=== PATIENT | female | born 1995 | race Caucasian/White ===

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

== ENCOUNTER → 2017-01-12 | Outpatient (CLI) | payer OTHER ==
[2017-01-12 11:48] LABS: BASO % 0.4 %; BASO ABS # 0.02 K/uL (0-0.2); COMPLETE YES; EOS % 4.6 %; HEMATOCRIT 39.9 % (37-47); IG% 0.2 %; LYMPH % 43.3 %; LYMPH ABS # 1.99 K/uL (1.2-3.4); MEAN CELL VOLUME 90.3 fL (80-100); MEAN CORPUSCULAR HEMOGLOBIN 28.5 pg (25-34); MEAN CORPUSCULAR HGB CONC 31.6 g/dl (32-36); MEAN PLATELET VOLUME 11.8 fL (7.4-10.4); MONO % 7.4 %; NEUT % 44.1 %; PLATELET COUNT 180 K/uL (130-400); RED BLOOD COUNT 4.42 M/uL (4.2-5.4)
[2017-01-12 14:01] LABS: ALT/SGPT 33 U/L (12-78); BLOOD UREA NITROGEN 9 mg/dl (7-18); BUN/CREATININE RATIO 11.9 (10-20); CALCIUM 9.5 mg/dl (8.5-10.1); CARBON DIOXIDE 29 mmol/L (21-32); CHLORIDE 108 mmol/L (98-107); CREATININE 0.77 mg/dl (0.60-1.20); GLUCOSE 87 mg/dl (70-99); POTASSIUM 4.3 mmol/L (3.5-5.1); SODIUM 141 mmol/L (136-145)
[2017-01-12 14:04] LABS: ALB/GLOB RATIO 1.2 (0.9-2); ALKALINE PHOSPHATASE 82 U/L (45-117); AST/SGOT 23 U/L (15-37)
== END | disposition home or self-care (01) ==
LOC: C.LAB 10:18
PROVIDERS: ATTEND Family Medicine
DX: F10.14 Alcohol abuse with alcohol-induced mood disorder (principal)

== ENCOUNTER 2017-05-17 18:20 | Emergency (ER) | payer OTHER ==
[~2017-05-17] VITALS: Ht 165.1 cm; Wt 46.4 kg
[2017-05-17 18:24] VITALS: TEMP 36.5; Ht 165.1 cm; Wt 46.4 kg
--- NOTE | 2017-05-17 19:14 | DIAGNOSTIC IMAGING REPORT ---
CHEST ONE VIEW PORTABLE HISTORY: 22 years-old Female Evaluate Fever/Sepsis acute fever with sepsis COMPARISON: None available TECHNIQUE: Portable AP view of the chest FINDINGS: Cardiomediastinal and hilar silhouettes are within normal limits. There is no pneumothorax, pleural effusion, focal airspace consolidation or overt pulmonary edema. Probable bone islands of the bilateral humeral heads. Bones appear grossly intact. Mild gaseous distention of the stomach. IMPRESSION: No acute process. The above report was generated using voice recognition software. It may contain grammatical, syntax or spelling errors. Electronically signed by: Chemo Gonzalez M.D. 05/17/2017 7:12 PM Dictated Date/Time: 05/17/2017 7:11 PM
[2017-05-17 19:37] LABS: BASO % 0.6 %; BASO ABS # 0.03 K/uL (0-0.2); EOS % 1.7 %; EOS ABS # 0.09 K/uL (0-0.5); HEMATOCRIT 35.8 % (37-47); IG# 0.02 K/uL (0.00-0.02); LYMPH % 29.1 %; LYMPH ABS # 1.56 K/uL (1.2-3.4); MEAN CELL VOLUME 90.9 fL (80-100); MEAN CORPUSCULAR HEMOGLOBIN 30.5 pg (25-34); MEAN CORPUSCULAR HGB CONC 33.5 g/dl (32-36); MEAN PLATELET VOLUME 10.3 fL (7.4-10.4); MONO % 9.5 %; MONO ABS # 0.51 K/uL (0.11-0.59); NEUT % 58.7 %; NEUT ABS # 3.16 K/uL (1.4-6.5); PLATELET COUNT 205 K/uL (130-400); RED CELL DISTRIBUTION WIDTH CV 14.6 % (11.5-14.5); RED CELL DISTRIBUTION WIDTH SD 47.7 fL (36.4-46.3); WHITE BLOOD COUNT 5.37 K/uL (4.8-10.8)
[2017-05-17] MEDS ORDERED: NALT380I INJ (19:50)
[2017-05-17 19:56] LABS: BLOOD UREA NITROGEN 16 mg/dl (7-18); CARBON DIOXIDE 31 mmol/L (21-32); CREATININE 0.67 mg/dl (0.60-1.20); GLUCOSE 96 mg/dl (70-99); POTASSIUM 3.2 mmol/L (3.5-5.1); SODIUM 138 mmol/L (136-145)
[2017-05-17 20:12] VITALS: BP 111/66; PULSE 77; O2SAT 98
--- NOTE | 2017-05-17 20:24 | EMERGENCY ROOM VISIT NOTE ---
History Report prepared by Lauraibluis: Angela Roman Under the Supervision of: Dr. Kings Grullon D.O. First contact with patient: 18:58 Chief Complaint: PALPITATIONS Stated Complaint: CHEST PAIN, RACY HEART EARLIER Nursing Triage Summary: Patient states she feels like her heart is racing, started one hour ago. Denies chest pain. History of Present Illness The patient is a 22 year old female who presents to the Emergency Room with complaints of persistent palpitations for 1.5 hours. She states that her heart has been racing and it wont stop. She notes that she was sitting when the symptoms began. She states that she has never had this problem in the past. She reports eating and drinking as normal. She states that she exercises a lot. She denies any chest pain. Source of History: patient Onset: 1.5 hours ago Position: chest Quality: other (palpitations) Timing: other (persistent) Associated Symptoms: No chest pain Review of Systems See HPI for pertinent positives & negatives. A total of 10 systems reviewed and were otherwise negative. Past Medical & Surgical Medical Problems: (1) No Known Active Medical Problems (2) Patient unable to provide medical history Family History No pertinent family history Social History Smoking Status: Never Smoker Alcohol Use: heavy Housing Status: lives with family Occupation Status: [employer] student Current/Historical Medications Scheduled Naltrexone (Vivitrol), 190 MG INJ [id number] Allergies Coded Allergies: No Known Allergies (Unverified , 05/17/17) Physical Exam Vital Signs Date Time Temp Pulse Resp B/P (MAP) Pulse Ox O2 Delivery O2 Flow Rate FiO2 05/17/17 20:12 77 18 111/66 98 Room Air 05/17/17 19:37 66 05/17/17 18:26 Room Air 05/17/17 18:24 36.5 95 16 129/76 96 Room Air Physical Exam CONSTITUTIONAL/VITAL SIGNS: Reviewed / noted above. GENERAL: Non-toxic in appearance. INTEGUMENTARY: Warm, dry, and [place]. HEAD: Normocephalic. EYES: without scleral icterus or trauma. ENT/OROPHARYNX: clear and moist. LYMPHADENOPATHY/NECK: Is supple without lymphadenopathy or meningismus. RESPIRATORY: Lungs clear and equal. CARDIOVASCULAR: Regular rate and rhythm. GI/ABDOMEN: Soft and nontender. No organomegaly or pulsatile mass. No rebound or guarding. Normal bowel sounds. EXTREMITIES: Warm and well perfused. BACK: No CVA tenderness. NEUROLOGICAL: Intact without focal deficits. PSYCHIATRIC: normal affect. MUSCULOSKELETAL: Normally developed with good muscle tone. Medical Decision & Procedures ER Provider Diagnostic Interpretation: Radiology results as stated below per my review and radiologist interpretation: CHEST ONE VIEW PORTABLE HISTORY: 22 years-old Female Evaluate Fever/Sepsis acute fever with sepsis COMPARISON: None available TECHNIQUE: Portable AP view of the chest FINDINGS: Cardiomediastinal and hilar silhouettes are within normal limits. There is no pneumothorax, pleural effusion, focal airspace consolidation or overt pulmonary edema. Probable bone islands of the bilateral humeral heads. Bones appear grossly intact. Mild gaseous distention of the stomach. IMPRESSION: No acute process. The above report was generated using voice recognition software. It may contain grammatical, syntax or spelling errors. Electronically signed by: Chemo Gonzalez M.D. 05/17/2017 7:12 PM Dictated Date/Time: 05/17/2017 7:11 PM Laboratory Results 05/17/17 19:18 Red Blood Count 3.94, Mean Corpuscular Volume 90.9, Mean Corpuscular Hemoglobin 30.5, Mean Corpuscular Hemoglobin Concent 33.5, Mean Platelet Volume 10.3, Neutrophils (%) (Auto) 58.7, Lymphocytes (%) (Auto) 29.1, Monocytes (%) (Auto) 9.5, Eosinophils (%) (Auto) 1.7, Basophils (%) (Auto) 0.6, Neutrophils # (Auto) 3.16, Lymphocytes # (Auto) 1.56, Monocytes # (Auto) 0.51, Eosinophils # (Auto) 0.09, Basophils # (Auto) 0.03 05/17/17 19:18 Test 05/17/17 19:18 White Blood Count 5.37 K/uL (4.8-10.8) Red Blood Count 3.94 M/uL (4.2-5.4) Hemoglobin 12.0 g/dL (12.0-16.0) Hematocrit 35.8 % (37-47) Mean Corpuscular Volume 90.9 fL (80-100) Mean Corpuscular Hemoglobin 30.5 pg (25-34) Mean Corpuscular Hemoglobin Concent 33.5 g/dl (32-36) Platelet Count 205 K/uL (130-400) Mean Platelet Volume 10.3 fL (7.4-10.4) Neutrophils (%) (Auto) 58.7 % Lymphocytes (%) (Auto) 29.1 % Monocytes (%) (Auto) 9.5 % Eosinophils (%) (Auto) 1.7 % Basophils (%) (Auto) 0.6 % Neutrophils # (Auto) 3.16 K/uL (1.4-6.5) Lymphocytes # (Auto) 1.56 K/uL (1.2-3.4) Monocytes # (Auto) 0.51 K/uL (0.11-0.59) Eosinophils # (Auto) 0.09 K/uL (0-0.5) Basophils # (Auto) 0.03 K/uL (0-0.2) RDW Standard Deviation 47.7 fL (36.4-46.3) RDW Coefficient of Variation 14.6 % (11.5-14.5) Immature Granulocyte % (Auto) 0.4 % Immature Granulocyte # (Auto) 0.02 K/uL (0.00-0.02) Anion Gap 5.0 mmol/L (3-11) Est Creatinine Clear Calc Drug Dose 98.1 ml/min Estimated GFR () 146.7 Estimated GFR (Non- 126.5 BUN/Creatinine Ratio 23.9 (10-20) Calcium Level 9.0 mg/dl (8.5-10.1) Troponin I < 0.015 ng/ml (0-0.045) Thyroid Stimulating Hormone (TSH) 1.070 uIu/ml (0.300-4.500) Laboratory results as stated above per my review. ECG Per My Interpretation Indication: palpitations Rate (beats per minute): 89 Rhythm: sinus rhythm, other (with Sinus Arrhythmia ) Findings: no ectopy, other (No ST elevations) ED Course 1901: Previous medical records were reviewed. The patient was evaluated in room C2A. A complete history and physical examination was performed. 2021: I reassessed the patient at this time. She is feeling better and resting comfortably. Her heart rate was 65. I discussed the results and treatment plan with the patient. I answered all pertaining questions that she had. She expressed understanding and verbalized agreement. The patient will be discharged home. Medical Decision Prior records/ancillary studies reviewed. Triage Nursing notes reviewed. The patient's history was concerning for palpitations. Differential diagnosis: Etiologies such as premature contractions, electrolyte abnormality, cardiac dysrhythmia, thyroid dysfunction, pulmonary embolism, infection, gastrointestinal, as well as others were entertained. This is a 22-year-old female who presents to the ED with a chief complaint of elevated heart rate. The patient feels like her heart is beating quickly. She states that this started just prior to arrival. She denies any other symptoms. Her physical exam was normal. An EKG shows a sinus rhythm at a rate of 89. Chest x-ray was negative for acute disease. CBC and PRP are normal, troponin was negative and a TSH is normal. The patient had a heart rate of 65 when I saw her at the time of disposition. She was without symptoms. She is felt to be stable for discharge. Medication Reconcilliation Current Medication List: was personally reviewed by me Blood Pressure Screening Patient's blood pressure: Normal blood pressure Impression Primary Impression: Palpitations Scribe Attestation The scribe's documentation has been prepared under my direction and personally reviewed by me in its entirety. I confirm that the note above accurately reflects all work, treatment, procedures, and medical decision making performed by me. Departure Information Dispostion Home / Self-Care Referrals Vinny Underwood M.D. (PCP) Forms HOME CARE DOCUMENTATION FORM, IMPORTANT VISIT INFORMATION, WORK / SCHOOL INSTRUCTIONS Patient Instructions My [facility] Additional Instructions Follow-up with your doctor for further care and evaluation in 1-2 days. Return to the emergency department for worsening or new symptoms or any concerns. You have been examined and treated today on an emergency basis only. This is not a substitute for, or an effort to provide, complete comprehensive medical care. It is impossible to recognize and treat all injuries or illnesses in a single emergency department visit. It is therefore important that you follow up closely with your doctor. Call as soon as possible for an appointment.
== END 2017-05-17 20:39 | disposition home or self-care (01) ==
LOC: C.EDB 18:22 → C.EDC 20:39
DX: R00.2 Palpitations (principal); F10.99 Alcohol use, unspecified with unspecified alcohol-induced disorder

== ENCOUNTER → 2017-05-31 | Outpatient (CLI) | payer OTHER ==
[~2017-05-31] MED LIST: NALT380I INJ
[2017-05-31 12:06] LABS: BASO % 0.5 %; BASO ABS # 0.02 K/uL (0-0.2); EOS % 2.2 %; EOS ABS # 0.09 K/uL (0-0.5); HEMATOCRIT 34.6 % (37-47); HEMOGLOBIN 11.5 g/dL (12.0-16.0); IG# 0.01 K/uL (0.00-0.02); LYMPH % 38.1 %; LYMPH ABS # 1.54 K/uL (1.2-3.4); MEAN CELL VOLUME 91.3 fL (80-100); MEAN CORPUSCULAR HEMOGLOBIN 30.3 pg (25-34); MEAN CORPUSCULAR HGB CONC 33.2 g/dl (32-36); MEAN PLATELET VOLUME 10.5 fL (7.4-10.4); MONO % 5.7 %; MONO ABS # 0.23 K/uL (0.11-0.59); NEUT % 53.3 %; NEUT ABS # 2.15 K/uL (1.4-6.5); PLATELET COUNT 276 K/uL (130-400); RED CELL DISTRIBUTION WIDTH CV 13.8 % (11.5-14.5); RED CELL DISTRIBUTION WIDTH SD 45.9 fL (36.4-46.3); WHITE BLOOD COUNT 4.04 K/uL (4.8-10.8)
[2017-05-31 12:24] LABS: ALBUMIN 3.8 gm/dl (3.4-5.0); ALT/SGPT 26 U/L (12-78); AST/SGOT 26 U/L (15-37); BLOOD UREA NITROGEN 13 mg/dl (7-18); CALCIUM 9.6 mg/dl (8.5-10.1); CARBON DIOXIDE 28 mmol/L (21-32); CREATININE 0.77 mg/dl (0.60-1.20); GLUCOSE 82 mg/dl (70-99); POTASSIUM 3.7 mmol/L (3.5-5.1); SODIUM 138 mmol/L (136-145)
[2017-05-31 12:33] LABS: ALKALINE PHOSPHATASE 97 U/L (45-117); CHOLESTEROL 180 mg/dl (0-200); LDL CHOLESTEROL CALCULATED 69 mg/dl; TOTAL PROTEIN 7.3 gm/dl (6.4-8.2)
== END | disposition home or self-care (01) ==
LOC: C.LAB 11:27
PROVIDERS: ATTEND Family Medicine
DX: R63.0 Anorexia (principal); F10.14 Alcohol abuse with alcohol-induced mood disorder; Z13.220 Encounter for screening for lipoid disorders; Z13.228 Encounter for screening for other metabolic disorders